=== PATIENT | female | born 1960 | race Caucasian/White ===

== ENCOUNTER 2020-09-12 17:20 | Emergency (ER) | payer OTHER ==
[2020-09-12 18:14] LABS: BASOPHIL 0.7 % (0-2); EOSINOPHIL 0.5 % (0-5); HCT 43.7 % (37.0-47.0); HGB 14.5 g/dl (12.5-16.0); LYMPHOCYTE 38.9 % (15-48); MCH 31.6 pg (25.0-31.0); MCHC 33.2 g/dL (32.0-36.0); MCV 95.2 fL (78.0-100.0); MONOCYTE 5.8 % (0-12); NEUTROPHIL 53.9 % (41-80); NRBC 0; PLT 264 K/uL (150-400); RBC 4.59 M/uL (4.20-5.40); RDW 12.6 % (11.5-14.0); WBC 10.5 K/uL (4.0-10.5)
[2020-09-12 18:31] LABS: ALBUMIN 3.5 g/dL (3.4-5.0); BILIRUBIN - TOTAL 0.4 mg/dL (0.2-1.0); BUN/CREAT RATIO (CALC) 15.6 RATIO; CREATININE 0.77 mg/dL (0.51-0.95); GLOBULIN (CALCULATION) 3.9 g/dL; POTASSIUM 4.3 mmol/L (3.5-5.1); TOTAL PROTEIN 7.4 g/dL (6.4-8.2)
[2020-09-12 18:35] LABS: LACTIC ACID 1.5 mmol/L (0.4-1.9)
[2020-09-12 18:36] LABS: BILIRUBIN NEGATIVE (NEGATIVE); BLOOD TRACE-INTACT Ery/uL (NEGATIVE); CLARITY CLEAR (CLEAR); COLOR YELLOW (YELLOW); GLUCOSE (U) NORMAL (NORMAL); LEUKOCYTES NEGATIVE Leu/uL (NEGATIVE); NITRITE NEGATIVE (NEGATIVE); PROTEIN NEGATIVE (NEGATIVE); SPECIFIC GRAVITY 1.015 (1.001-1.030); UROBILINOGEN 0.2 mg/dL (0.2-1.0); pH 5.5 (5.0-9.0)
[2020-09-12 18:41] LABS: SQUAMOUS EPITHELIAL CELLS RARE; URINARY RBC RARE
[2020-09-12] MEDS ORDERED: HYDROCODON-ACE1 EAC2 PO (19:45)
[2020-09-12] MEDS ORDERED: ONDANSETRON ODT4 MG PO (19:45)
[2020-09-12] MEDS ORDERED: FLOMAX 0.4 MG0.4 MG PO (19:45)
== END 2020-09-12 19:57 | disposition home or self-care (01) ==
LOC: FER 17:20
PROVIDERS: Emergency Medicine
DX: N13.2 Hydronephrosis with renal and ureteral calculous obstruction (principal); Z90.49 Acquired absence of other specified parts of digestive tract; Z98.890 Other specified postprocedural states; Z88.5 Allergy status to narcotic agent
CPT/HCPCS: 36415; 80053; 81001; 83605; 83690; 84484; 85025; 87088; 93005